=== PATIENT | female | born 1950 | race Caucasian/White ===

== ENCOUNTER → 2021-06-06 | Outpatient (CLI) | payer MEDICARE, BC ==
[~2021-06-06] MED LIST: AMBIEN10 MG PO; CLONAZEPAM1 MG PO; HYDROCODON-ACE1 EAC6 PO; LEVOTHYROXINE25 MCG PO; LISINOPRIL20 MG PO; LORADAMED10 MG PO; METOPROLOL SUCC25 MG PO; NORVASC5 MG PO; PEPCID40 MG PO; PRISTIQ ER50 MG PO; PROTONIX 40 MG40 M1 PO; SIMVASTATIN20 MG PO
[2021-06-06 13:52] LABS: HEMOGLOBIN 13.1 gm/dl (12.3-15.3); RED BLOOD COUNT 4.55 M/UL (4.00-5.10); WHITE BLOOD COUNT 4.8 K/UL (4.5-11.0)
== END ==
LOC: EDSTATUS 12:30 → OPSV2 12:30
PROVIDERS: Orthopaedic Surgery
DX: Z01.818 Encounter for other preprocedural examination (principal); M17.11 Unilateral primary osteoarthritis, right knee
CPT/HCPCS: 80048; 85027; 93005

== ENCOUNTER → 2021-06-20 | Day surgery (SDC) | payer MEDICARE, BC ==
[~2021-06-20] VITALS: Ht 157.5 cm; Wt 68.0 kg
== END | disposition home or self-care (01) ==
LOC: OR 05:08 → EDSTATUS 12:00
DX: M17.11 Unilateral primary osteoarthritis, right knee (principal); M22.41 Chondromalacia patellae, right knee; I10 Essential (primary) hypertension; E78.5 Hyperlipidemia, unspecified; K21.9 Gastro-esophageal reflux disease without esophagitis; Z20.822 Contact with and (suspected) exposure to COVID-19; Z85.828 Personal history of other malignant neoplasm of skin; Z90.710 Acquired absence of both cervix and uterus; Z90.49 Acquired absence of other specified parts of digestive tract
CPT/HCPCS: 73560; 97110; 97162; 97165; 97530; 97535; C1713; C1776; J0171; J0690; J0735; J1100; J1885; J2001; J2250; J2274; J2370; J2405; J2704; J2710; J2795; J3010; J3370; J7120; P9045; U0002